=== PATIENT | male | born 1960 | race Caucasian/White ===

== ENCOUNTER 2022-07-17 09:12 | Emergency (ER) | payer OTHER ==
[~2022-07-17] VITALS: Ht 180.3 cm; Wt 88.0 kg
[2022-07-17 09:20] VITALS: BP 142/80
[2022-07-17] MEDS ORDERED: METHOCARBAMOL 500MG TABLET PO ONE (10:15)
[2022-07-17] MEDS ORDERED: IBUPROFEN 400MG TABLET PO ONE (10:15)
[2022-07-17] MEDS ORDERED: TOPUD MT (12:35)
== END 2022-07-17 13:19 | disposition home or self-care (01) ==
LOC: ER 09:12
DX: S49.81XA Other specified injuries of right shoulder and upper arm, initial encounter (principal); X50.0XXA Overexertion from strenuous movement or load, initial encounter; Y93.89 Activity, other specified; Y92.89 Other specified places as the place of occurrence of the external cause; Y99.0 Civilian activity done for income or pay
CPT/HCPCS: 73030; 99283